=== PATIENT | male | born 1955 | race Two or more races ===

== ENCOUNTER 2019-12-05 10:45 | Day surgery (SDC) | payer BC ==
[2019-12-01 11:53] LABS: Basophils % (auto) 0.5 % (0.0-2.0); Eosinophils # (auto) 0.1 uL; Monocytes # (auto) 0.9 uL; White Blood Cell 10.1 10^3/uL (4.4-10.8)
[2019-12-01 11:56] LABS: Basophils # (auto) 0 uL; Eosinophils % (auto) 0.8 % (0.0-7.0); Hematocrit 35.7 % (41.0-53.0); Lymphocytes # (auto) 1.2 uL; Lymphocytes % (auto) 12.4 % (10.0-50.0); Mean Corpuscular Hgb Conc. 30.9 g/dL (32.0-36.0); Mean Corpuscular Volume 67.8 fL (80.0-100.0); Neutrophils # (auto) 7.8 uL; Neutrophils % (auto) 77.3 % (37.0-80.0); Platelet Count (auto) 339 10^3/uL (140-450); Red Blood Cells 5.26 10^6/uL (4.5-5.90); Red Cell Distribution Width 19.7 % (11.8-14.3)
[2019-12-01 12:10] LABS: Partial Thromboplastin Time 27.1 sec (23.64-32.05)
[2019-12-05] MEDS ORDERED: FLUMAZENIL 0.1 MG/ML INJ 10ML MDV IV ONE (11:37)
[2019-12-05] MEDS ORDERED: SODIUM CHLORIDE LOCK 10 ML ONE (11:37)
[2019-12-05] MEDS ORDERED: LIDOCAINE VISCOUS 2% 15ML UD ONE (11:37)
[2019-12-05] MEDS ORDERED: NALOXONE HCL 0.4 MG/ML VIAL ONE (11:37)
[2019-12-05] MEDS ORDERED: diphenhdrAMINE HCL 50 MG/1 ML VL ONE (11:38)
[2019-12-05] MEDS: MIDAZOLAM HCL 5 MG/ML-1ML VIAL ONE ×3 (12:30→12:43)
[2019-12-05] MEDS: fentaNYL CITRATE 100 MCG/2 ML VL ONE ×3 (12:30→12:43)
[2019-12-05 13:32] VITALS: BP 114/72
== END 2019-12-05 13:42 | disposition home or self-care (01) ==
LOC: GI 10:45
PROVIDERS: ATTEND Internal Medicine Gastroenterology
DX: K63.5 Polyp of colon (principal); K29.50 Unspecified chronic gastritis without bleeding; K44.9 Diaphragmatic hernia without obstruction or gangrene; K57.30 Diverticulosis of large intestine without perforation or abscess without bleeding; K64.8 Other hemorrhoids; Z98.890 Other specified postprocedural states; Z79.899 Other long term (current) drug therapy
CPT/HCPCS: 36415; 43239; 45381; 85025; 85610; 85730; 88305; 88313; 88342; J1200; J2250; J3010; J7030; 99152; 99153